=== PATIENT | male | born 1960 | race Caucasian/White ===

== ENCOUNTER 2016-10-05 21:02 | Emergency (ER) | payer MEDICAID ==
[~2016-10-05] VITALS: Ht 167.6 cm; Wt 72.6 kg
[2016-10-06 01:35] VITALS: BP 97/62
== END 2016-10-06 01:35 | disposition home or self-care (01) ==
LOC: ED 21:02
DX: F10.129 Alcohol abuse with intoxication, unspecified (principal); M54.5 Low back pain
CPT/HCPCS: J1885